=== PATIENT | male | born 2005 | race African-American/Black ===

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

== ENCOUNTER 2024-05-05 18:16 | Emergency (ER) | payer MEDICAID ==
[~2024-05-05] VITALS: Ht 170.2 cm; Wt 77.0 kg
[~2024-05-05 18:16] MED LIST: KEPP500 MT
[2024-05-05 18:22] VITALS: TEMP 97.7; O2SAT 100
[2024-05-05] MEDS: BACITRACIN ZINC OINT UDPKT TOP ONE (18:45)
[2024-05-05] MEDS ORDERED: LIDOCAINE HCL/PF 1% 10 MG/ML 5ML VIAL INFIL ONE (18:45)
[2024-05-05] MEDS: HYDROCODONE/ACETAMINOPHEN 5/325MG TABLET PO STA (19:04)
[2024-05-05] MEDS: TETANUS, DIPHTHERIA, PERTUSSIS VAC/PF 0.5ML (>10YR OLD) IM ONE (19:04)
[2024-05-05] MEDS: SODIUM CHLORIDE 0.9% 1,000 ML IV ONE (19:05)
[2024-05-05] MEDS: LEVETIRACETAM 1000MG PREMIX 100 ML IV ONE (19:06)
[2024-05-05 19:59] LABS: BASOPHILS % 0.4 % (0.0-2.0); EOSINOPHILS % 1.8 % (0.0-5.0); HEMATOCRIT. 43.2 % (42.0-52.0); HEMOGLOBIN. 14.3 g/dL (14.0-18.0); LYMPHOCYTES % 19.2 % (20.0-50.0); MEAN CORPUSCULAR HEMOGLOBIN 28.1 pg (28.0-32.0); MEAN CORPUSCULAR HGB CONC 33.1 g/dL (31.0-37.0); MEAN CORPUSCULAR VOLUME 84.7 fL (80.0-94.0); MEAN PLATELET VOLUME 8.4 fl (7.4-10.4); NEUTROPHILS % 71.6 % (40.0-76.0); PLATELET 223 x1000/uL (130-400); WHITE BLOOD COUNT 7.4 x1000/uL (4.5-11.0)
[2024-05-05 20:07] LABS: CHLORIDE 104 mEq/L (98-107); POTASSIUM 3.5 mEq/L (3.5-5.1); SODIUM 138 mEq/L (136-145)
[2024-05-05 20:08] LABS: CALCIUM 9.4 mg/dL (8.7-10.4); CARBON DIOXIDE 23 mEq/L (21-32); PROTHROMBIN TIME 11.2 sec (9.6-11.0)
[2024-05-05 20:13] LABS: CREATININE 1.1 mg/dL (0.6-1.3); GLUCOSE 92 mg/dL (70-105); UREA NITROGEN BLOOD 13 mg/dL (9-23)
[2024-05-05 20:30] LABS: ETHANOL BLOOD < 10 mg/dL (<10)
[2024-05-05] MEDS: LIDOCAINE HCL/PF 1% 10 MG/ML 5ML VIAL INFIL NR (20:45)
[2024-05-06] MEDS ORDERED: AMOX1TAB16 MT (00:59)
[2024-05-06] MEDS: BACITRACIN ZINC OINT UDPKT TOP NR (01:17)
[2024-05-06 01:19] VITALS: BP 113/58; PULSE 75; RESP 19; O2SAT 98
[2024-05-06] MEDS ORDERED: GUAIFENESIN 200MG/10ML SUGAR FREE UDC PO PRN (01:30)
[2024-05-06] MEDS ORDERED: CLONIDINE 0.1MG TABLET PO PRN (01:30)
[2024-05-06] MEDS ORDERED: LORAZEPAM 2MG/ML INJ IV PRN (01:30)
[2024-05-06] MEDS ORDERED: LEVETIRACETAM 500MG in NACL 100ML PREMIX IV ONE (01:30)
[2024-05-06] MEDS ORDERED: ACETAMINOPHEN 325MG TABLET PO PRN ×2 (01:30)
[2024-05-06] MEDS ORDERED: IPRATROPIUM/ALBUTEROL 0.5-3(2.5)MG/3ML NEB HHN PRN (01:30)
[2024-05-06] MEDS ORDERED: DOCUSATE SODIUM 100MG CAPSULE PO PRN (01:30)
[2024-05-06] MEDS ORDERED: MAGNESIUM/ALUMINUM HYDROXIDE/SIMETHICONE 30ML UDC PO PRN (01:30)
[2024-05-06] MEDS ORDERED: KEPP500 MT (01:30)
[2024-05-06] MEDS ORDERED: ONDANSETRON HCL 4MG/2ML INJ IV PRN (01:30)
[2024-05-06] MEDS: LEVETIRACETAM 500MG PREMIX 100ML IV NR (02:01)
[2024-05-06] MEDS: SODIUM CHLORIDE 0.9% 1,000 ML IV ONE (02:01)
== END 2024-05-06 02:02 | disposition home or self-care (01) ==
LOC: ER 18:16
DX: S01.511A Laceration without foreign body of lip, initial encounter (principal); E16.2 Hypoglycemia, unspecified; X58.XXXA Exposure to other specified factors, initial encounter; Y93.89 Activity, other specified; Y92.000 Kitchen of unspecified non-institutional (private) residence as the place of occurrence of the external cause; Y99.8 Other external cause status
CPT/HCPCS: 80048; 80320; 85025; 85610; 36415; 70450; 70486; 90715; 12014; 90471; 96365; 96366; 99285; J1953; J3490; J7030; Z7610; J2003; G0480

== ENCOUNTER 2025-04-09 01:23 | Emergency (ER) | payer MEDICAID ==
[~2025-04-09] VITALS: Ht 180.3 cm; Wt 87.0 kg
[~2025-04-09 01:23] MED LIST changes: +AMOX1TAB16 MT
[2025-04-09 01:28] VITALS: O2SAT 100
[2025-04-09 04:52] LABS: BASOPHILS % 0.5 % (0.0-2.0); EOSINOPHILS % 0.2 % (0.0-5.0); HEMATOCRIT. 41.8 % (42.0-52.0); HEMOGLOBIN. 13.9 g/dL (14.0-18.0); LYMPHOCYTES % 12.8 % (20.0-50.0); MEAN PLATELET VOLUME 8.6 fl (7.4-10.4); MONOCYTES % 4.3 % (2.0-8.0); NEUTROPHILS % 82.2 % (40.0-76.0); PLATELET 224 x1000/uL (130-400); RED BLOOD CELL COUNT 5.14 mill/uL (4.7-6.1); RED CELL DISTRIBUTION WIDTH 14.3 % (11.6-14.6)
[2025-04-09 05:06] LABS: CREATININE 1.0 mg/dL (0.6-1.3); ETHANOL BLOOD < 10 mg/dL (<10); PROTEIN TOTAL 7.1 g/dL (6.0-8.3); UREA NITROGEN BLOOD 10 mg/dL (9-23)
[2025-04-09 05:08] LABS: ASPARTATE AMINOTRANSFERASE 39 IU/L (<34); BILIRUBIN DIRECT 0.4 mg/dL (<=3.0); BILIRUBIN TOTAL 1.3 mg/dL (0.1-1.0)
[2025-04-09 10:56] LABS: *AMPHETAMINES SCREEN URINE NEGATIVE (NEGATIVE); *BARBITURATES SCREEN URINE NEGATIVE (NEGATIVE); *BENZODIAZEPINES SCREEN URINE NEGATIVE (NEGATIVE); *COCAINE SCREEN URINE NEGATIVE (NEGATIVE); CANNABINOID URINE SCREEN PRESUMPTIVE POSITIVE (NEGATIVE); ECSTASY MDMA SCREEN URINE NEGATIVE (NEGATIVE); METHADONE URINE SCREEN NEGATIVE (NEGATIVE); OPIATES URINE SCREEN NEGATIVE (NEGATIVE); PHENCYCLIDINE URINE SCREEN NEGATIVE (NEGATIVE)
[2025-04-09 15:55] LABS: CLARITY URINE CLEAR (CLEAR); COLOR URINE YELLOW (YELLOW); GLUCOSE URINE NEGATIVE (NEGATIVE); KETONES URINE NEGATIVE (NEGATIVE); LEUKOCYTE ESTERASE URINE NEGATIVE (NEGATIVE); NITRITE URINE NEGATIVE (NEGATIVE); OCCULT BLOOD URINE NEGATIVE (NEGATIVE); PH URINE 6.0 (4.5-8.0); PROTEIN URINE NEGATIVE (NEGATIVE); SPECIFIC GRAVITY URINE 1.017 (1.005-1.030); UROBILINOGEN URINE 1.0 E.U./dL (0.2-1.0)
[2025-04-10] MEDS ORDERED: LEVE1000 MT (08:27)
[2025-04-10] MEDS: POTASSIUM CHLORIDE 20MEQ/PACKET PO NR (08:30)
[2025-04-10] MEDS: LEVETIRACETAM 500MG TABLET PO SCH (09:00)
[2025-04-10 10:07] LABS: CREATININE 1.0 mg/dL (0.6-1.3); UREA NITROGEN BLOOD 9 mg/dL (9-23)
[2025-04-10 23:04] VITALS: BP 118/74; PULSE 64; RESP 16; TEMP 37; O2SAT 100
== END 2025-04-10 23:35 ==
LOC: ER 01:23
DX: F23 Brief psychotic disorder (principal); Z20.822 Contact with and (suspected) exposure to COVID-19; Z79.899 Other long term (current) drug therapy
CPT/HCPCS: 36415; 80048; 80076; 80305; 80307; 80320; 80329; 81003; 82140; 82962; 85025; 87426; 99285; G0480